=== PATIENT | female | born 1970 | race Caucasian/White ===

== ENCOUNTER → 2016-07-11 | Outpatient (CLI) | payer BC ==
[~2016-07-11] MED LIST: AMBIEN 10MG10 MG PO; AMBIEN 5MG TABLE5 MG PO; AMITRIPTYLINE H25 M1 PO; AMLOPIDINE; ANTIVERT 25MG25 MG PO; BENADRYL25 M2 PO; CALCIUM; CARAFATE 1GM1 G PO; CEPHALEXIN500 M1 PO; CLEOCIN HC150 MG/CAP PO; COMBIVENT INH14.7 GM IH; COUMADIN 5MG5 MG/TAB; FLEXERIL 1010 MG/TAB; FLONASE NASAL S16 GM NS; FLOVENT 44MCG I13 GM IH; HCTZ; IPRATROPIUM BROM3 M1 IH; IRON325 M1; K-DUR 10 MEQ T10 MEQ PO; K-DUR20 MEQ PO; KADIAN100 MG PO; LASIX 20MG TABL20 MG PO; LASIX 40MG TABL40 MG PO; LIORESAL 1010 MG/TAB PO; LIPITOR 40MG TA40 MG PO; LISINOPRIL10 MG PO; MIRAPEX 1MG PO; MIRAPEX0.75 MG PO; MOVANTIK25 MG PO; MS CONTIN 660 MG/TAB PO; MS CONTIN100 MG PO; MULTIVITAMIN1 CTB PO; NEURONTIN300 MG/CAP PO; NEURONTIN600 MG/TAB PO; NEXIUM 40MG40 MG PO; NEXIUM PO; NORCO 325 MG-51 TAB PO; NORVASC 5MG5 MG/TAB PO; PEPCID40 MG PO; PERCOCET 325 MG1 TAB PO; PHENERGAN 25 TA25 MG PO; PRAVACHOL 40MG40 MG PO; PREDNISONE20 MG PO; PRENATAL PO; PRENATAL VITAMI1 TA3 PO; PRENATAL1 TA6; PREVACID SOLUTA30 M2 PO; PRIL40 PO; PRILOSEC 20MG20 MG PO; PRINIVIL10 MG PO; PRINIVIL20 MG PO; PRINZIDE 12.5 M1 TA1 PO; PROAIR HFA0.09 MG/AC IH; PROVENTIL0.09 MG/A1 IH; SENEXON8.6 MG PO; TRIAMCINOLONE A15 G1 TP; TYLENOL 325MG325 MG PO; TYLENOL 500MG500 MG PO; ULTRAM 50MG TAB50 MG; VALIUM5 MG PO; VITAMIN B COMPL1 T16 PO; VITAMIN B11000 MCG/M IM; VITAMIN B122500 MCG; VITAMIN D 50,1.25 MG; VITAMIN D1000 IU PO; VITAMIN D32000 IU PO; ZOFRAN 4MG T4 MG/TAB PO; ZOFRAN ODT4 MG PO; ZOLOFT 100MG100 MG PO; [UNRECOGNIZED DRUG - CODE] PO; [UNRECOGNIZED DRUG - OTHER]
== END ==
LOC: COL.RAD 10:38
DX: M25.511 Pain in right shoulder (principal); M25.561 Pain in right knee; R10.84 Generalized abdominal pain; K59.00 Constipation, unspecified; R11.2 Nausea with vomiting, unspecified

== ENCOUNTER → 2016-07-14 | Outpatient (CLI) | payer BC ==
[2016-07-18 17:04] LABS: HELICOBACTER PYLORI STOOL AG Negative (Negative)
== END ==
LOC: ZCOL.LAB 13:48
PROVIDERS: Family Medicine
DX: R10.9 Unspecified abdominal pain (principal); K59.00 Constipation, unspecified; R11.10 Vomiting, unspecified; R11.0 Nausea

== ENCOUNTER → 2016-07-18 | Outpatient (CLI) | payer BC ==
[~2016-07-18] VITALS: Ht 170.2 cm; Wt 147.7 kg
[2016-07-18 10:47] VITALS: BP 128/82; PULSE 84; TEMP 98.6
== END ==
LOC: EUO 10:00
DX: M81.8 Other osteoporosis without current pathological fracture (principal)
CPT/HCPCS: J3489

== ENCOUNTER 2016-07-26 07:52 | Emergency (ER) | payer BC ==
[~2016-07-26] VITALS: Ht 170.2 cm; Wt 147.7 kg
[~2016-07-26 07:52] MED LIST changes: -AMITRIPTYLINE H25 M1 PO; -CEPHALEXIN500 M1 PO; -CLEOCIN HC150 MG/CAP PO; -K-DUR 10 MEQ T10 MEQ PO; -K-DUR20 MEQ PO; -LASIX 20MG TABL20 MG PO; -LASIX 40MG TABL40 MG PO; -MS CONTIN100 MG PO; -MULTIVITAMIN1 CTB PO; -PHENERGAN 25 TA25 MG PO; -PRINIVIL10 MG PO; -PRINIVIL20 MG PO; -TRIAMCINOLONE A15 G1 TP; -ZOFRAN 4MG T4 MG/TAB PO; -ZOLOFT 100MG100 MG PO
[2016-07-26 07:56] VITALS: TEMP 98
[2016-07-26 10:33] VITALS: BP 110/82; PULSE 102
== END 2016-07-26 10:35 | disposition home or self-care (01) ==
LOC: COL.ER 07:52
DX: S70.01XA Contusion of right hip, initial encounter (principal); S80.01XA Contusion of right knee, initial encounter; W18.30XA Fall on same level, unspecified, initial encounter; Y92.009 Unspecified place in unspecified non-institutional (private) residence as the place of occurrence of the external cause
CPT/HCPCS: J1885

== ENCOUNTER 2016-07-31 13:53 | Emergency (ER) | payer BC ==
[~2016-07-31] VITALS: Ht 170.2 cm; Wt 150.0 kg
[2016-07-31 13:57] VITALS: TEMP 97.8
[2016-07-31 15:32] LABS: BASO # 0.1 (0.0-0.2); BASO % 0.7 % (0.0-2.0); EOS # 0.2 (0.0-0.7); EOS % 2.1 % (0-4.0); GRAN # 6.2 (1.4-6.5); GRAN % 71.8 % (42.2-75.2); HEMATOCRIT 37.2 % (37.0-47.0); HEMOGLOBIN 12.4 g/dl (12.5-16.0); LYMPH # 1.6 (1.2-3.4); MEAN CELL VOLUME 86 fl (80.0-100.0); MEAN CORPUSCULAR HEMOGLOBIN 29 pg (27.0-31.0); MEAN CORPUSCULAR HGB CONC 33 g/dl (33.0-37.0); MEAN PLATELET VOLUME 8.1 fl (7.4-10.4); MONO # 0.6 (0.1-0.6); MONO % 7.2 % (1.7-9.3); PLATELET COUNT 248 K/mm3 (130-400); RED BLOOD COUNT 4.35 M/mm3 (4.10-5.30); REDCELL DISTRIBUTION WIDTH-CV 13.6 % (11.5-14.5); WHITE BLOOD COUNT 8.6 K/mm3 (4.8-10.8)
[2016-07-31 15:51] LABS: ADJUSTED CALCIUM 8.9 mg/dL (8.4-10.2); ALBUMIN 3.8 gm/dL (3.5-5.0); BILIRUBIN,TOTAL 0.8 mg/dL (0.0-1.0); C-REACTIVE PROTEIN 1.8 mg/dL (0.0-0.9); CALCIUM 8.7 mg/dL (8.4-10.2); CREATININE, serum 0.73 mg/dL (0.52-1.25); TOTAL PROTEIN 7.2 gm/dL (6.4-8.2)
[2016-07-31] MEDS ORDERED: CEPHALEXIN500 M1 PO (18:32)
[2016-07-31] MEDS ORDERED: LASIX 20MG TABL20 MG PO (18:32)
[2016-07-31] MEDS ORDERED: K-DUR 10 MEQ T10 MEQ PO (18:32)
[2016-07-31 18:49] VITALS: BP 141/92; PULSE 108
== END 2016-07-31 19:20 | disposition home or self-care (01) ==
LOC: COL.ER 13:53
PROVIDERS: Emergency Medicine
DX: S82.831A Other fracture of upper and lower end of right fibula, initial encounter for closed fracture (principal); L03.115 Cellulitis of right lower limb; W19.XXXA Unspecified fall, initial encounter; R60.0 Localized edema
CPT/HCPCS: J1170

== ENCOUNTER 2016-12-25 12:09 | Inpatient (IN) | payer BC, OTHER ==
[~2016-12-25] VITALS: Ht 170.2 cm; Wt 147.5 kg
[~2016-12-25 12:09] MED LIST changes: +CEPHALEXIN500 M1 PO; +K-DUR 10 MEQ T10 MEQ PO; +LASIX 20MG TABL20 MG PO
[2016-12-25] MEDS ORDERED: MS CONTIN100 MG PO (12:45)
[2016-12-25] MEDS ORDERED: LASIX 40MG TABL40 MG PO (12:51)
[2016-12-25] MEDS ORDERED: K-DUR20 MEQ PO (12:52)
[2016-12-25] MEDS ORDERED: ZOLOFT 100MG100 MG PO (13:03)
[2016-12-25] MEDS ORDERED: AMITRIPTYLINE H25 M1 PO (13:04)
[2016-12-25] MEDS ORDERED: ZOFRAN 4MG T4 MG/TAB PO (13:04)
[2016-12-25] MEDS ORDERED: IPRATROPIUM BROM3 M1 IH (13:05)
[2016-12-25 13:29] LABS: MEAN CELL VOLUME 83 fl (80.0-100.0); MEAN CORPUSCULAR HGB CONC 35 g/dl (33.0-37.0); MEAN PLATELET VOLUME 8.9 fl (7.4-10.4); PLATELET COUNT 112 K/mm3 (130-400); RED BLOOD COUNT 3.74 M/mm3 (4.10-5.30); REDCELL DISTRIBUTION WIDTH-CV 18.4 % (11.5-14.5); WHITE BLOOD COUNT 3.2 K/mm3 (4.8-10.8)
[2016-12-25 13:30] LABS: HEMATOCRIT 31.1 % (37.0-47.0); HEMOGLOBIN 10.8 g/dl (12.5-16.0); MEAN CORPUSCULAR HEMOGLOBIN 29 pg (27.0-31.0)
[2016-12-25 13:39] LABS: ADJUSTED CALCIUM 8.8 mg/dL (8.4-10.2); ALBUMIN 3.7 gm/dL (3.5-5.0); BILIRUBIN,TOTAL 0.7 mg/dL (0.0-1.0); CALCIUM 8.6 mg/dL (8.4-10.2); CREATININE, serum 1.51 mg/dL (0.52-1.25); POTASSIUM 3.6 mmol/L (3.4-5.0); TOTAL PROTEIN 6.7 gm/dL (6.4-8.2)
[2016-12-25 13:52] LABS: ADD PATHOLOGY DIFF REVIEW YES; BAND 16 % (0-10); BASOPHIL 1 % (0-2); EOSINOPHIL 12 % (0-4); METAMYELOCYTE 2 % (0-0); NEUTROPHILS 57 % (42.0-75.2); PLATELET ESTIMATE DECREASED (NORMAL); TOTAL CELLS COUNTED 100
[2016-12-25 14:53] LABS: PH 5 (5-8); SQUAMOUS EPITHELIAL 0-2 /hpf; URINE APPEARANCE Clear; URINE BACTERIA Occasional /hpf; URINE BILIRUBIN Negative (NEGATIVE); URINE BLOOD Negative (NEGATIVE); URINE COLOR Yellow; URINE GLUCOSE Negative (NEGATIVE); URINE KETONE Negative (NEGATIVE); URINE RBC 0-2 /hpf; URINE UROBILINOGEN Negative (NEGATIVE); URINE WBC 0-2 /hpf
[2016-12-25] MEDS ORDERED: MULTIVITAMIN1 CTB PO (14:53)
[2016-12-25 19:49] VITALS: BP 108/70; PULSE 77; TEMP 97.7
[2016-12-25 20:31] LABS: ANION GAP 10 mmol/L (7-16); BLOOD UREA NITROGEN 22 mg/dL (7-17); CALCIUM 8.5 mg/dL (8.4-10.2); CARBON DIOXIDE 30 mmol/L (22-30); CREATININE, serum 1.21 mg/dL (0.52-1.25); GLUCOSE 101 mg/dL (74-106); POTASSIUM 3.5 mmol/L (3.4-5.0); SODIUM 129 mmol/L (137-145)
[2016-12-25 20:34] LABS: CHLORIDE 89 mmol/L (98-107)
[2016-12-25 22:51] LABS: B-TYPE NATRIURETIC PEPTIDE 378 pg/mL (0-125)
[2016-12-25 22:52] LABS: TROPONIN-I < 0.012 ng/mL (0.000-0.034)
[2016-12-26] VITALS (7 sets, daily range): BP systolic 85–134; BP diastolic 45–81; PULSE 75–110; TEMP 97.6–98.7
[2016-12-26 07:17] LABS: MEAN CELL VOLUME 84 fl (80.0-100.0); MEAN CORPUSCULAR HGB CONC 35 g/dl (33.0-37.0); MEAN PLATELET VOLUME 8.7 fl (7.4-10.4); PLATELET COUNT 114 K/mm3 (130-400); RED BLOOD COUNT 3.58 M/mm3 (4.10-5.30); REDCELL DISTRIBUTION WIDTH-CV 18.4 % (11.5-14.5); WHITE BLOOD COUNT 2.4 K/mm3 (4.8-10.8)
[2016-12-26 07:18] LABS: HEMATOCRIT 29.9 % (37.0-47.0); HEMOGLOBIN 10.4 g/dl (12.5-16.0); MEAN CORPUSCULAR HEMOGLOBIN 29 pg (27.0-31.0)
[2016-12-26 07:19] LABS: ADD PATHOLOGY DIFF REVIEW NO
[2016-12-26 07:38] LABS: CALCIUM 8.1 mg/dL (8.4-10.2); CREATININE, serum 0.88 mg/dL (0.52-1.25); POTASSIUM 3.6 mmol/L (3.4-5.0)
[2016-12-26 08:15] LABS: BAND 32 % (0-10); EOSINOPHIL 12 % (0-4); MYELOCYTE 2 % (0-0); NEUTROPHILS 48 % (42.0-75.2); TOTAL CELLS COUNTED 100
[2016-12-26 08:20] LABS: PLATELET ESTIMATE DECREASED (NORMAL)
[2016-12-26 08:21] LABS: ANISOCYTOSIS 1+
[2016-12-26 09:29] LABS: PATHOLOGY DIFF REVIEW OK
[2016-12-27] VITALS (7 sets, daily range): BP systolic 106–137; BP diastolic 39–79; PULSE 61–79; TEMP 97.1–98.2
[2016-12-27 06:44] LABS: BASO % 0.8 % (0.0-2.0); EOS # 0.2 (0.0-0.7); EOS % 9.7 % (0-4.0); GRAN # 1.6 (1.4-6.5); GRAN % 66.4 % (42.2-75.2); HEMOGLOBIN 10.4 g/dl (12.5-16.0); LYMPH # 0.1 (1.2-3.4); LYMPH % 5.7 % (20.0-51.0); MEAN CELL VOLUME 86 fl (80.0-100.0); MEAN CORPUSCULAR HEMOGLOBIN 29 pg (27.0-31.0); MEAN CORPUSCULAR HGB CONC 34 g/dl (33.0-37.0); MEAN PLATELET VOLUME 8.6 fl (7.4-10.4); MONO # 0.4 (0.1-0.6); PLATELET COUNT 112 K/mm3 (130-400); RED BLOOD COUNT 3.62 M/mm3 (4.10-5.30); REDCELL DISTRIBUTION WIDTH-CV 18.5 % (11.5-14.5); WHITE BLOOD COUNT 2.5 K/mm3 (4.8-10.8)
[2016-12-27 06:55] LABS: CALCIUM 8.1 mg/dL (8.4-10.2); CREATININE, serum 0.71 mg/dL (0.52-1.25); POTASSIUM 3.7 mmol/L (3.4-5.0)
[2016-12-28 04:13] VITALS: BP 117/79; PULSE 69; TEMP 97.8
[2016-12-28 07:16] LABS: CALCIUM 8.2 mg/dL (8.4-10.2); CREATININE, serum 0.76 mg/dL (0.52-1.25); POTASSIUM 3.5 mmol/L (3.4-5.0)
[2016-12-28 08:52] VITALS: BP 131/82; PULSE 72; TEMP 98.6
[2016-12-28 12:05] VITALS: BP 126/78; PULSE 66; TEMP 97.6
[2016-12-28] MEDS ORDERED: CLEOCIN HC150 MG/CAP PO (13:34)
[2016-12-28] MEDS ORDERED: PRINIVIL20 MG PO (13:35)
[2016-12-28] MEDS ORDERED: TRIAMCINOLONE A15 G1 TP (13:36)
[2016-12-28 16:08] VITALS: BP 127/79; PULSE 82; TEMP 98.2
[2016-12-28 19:17] VITALS: BP 122/72; PULSE 68; TEMP 98.1
[2016-12-28 22:54] VITALS: BP 115/72; PULSE 77; TEMP 98.5
[2016-12-29 03:59] VITALS: BP 139/89; PULSE 76; TEMP 98.5
[2016-12-29 07:31] VITALS: BP 143/82; PULSE 90; TEMP 98.1
[2016-12-29 07:55] LABS: CALCIUM 8.7 mg/dL (8.4-10.2); CREATININE, serum 0.71 mg/dL (0.52-1.25); POTASSIUM 3.8 mmol/L (3.4-5.0)
== END 2016-12-29 13:20 | disposition home or self-care (01) | DRG 683 ==
LOC: COL.ER 12:09 → SURG 17:43 → MEDICAL 17:43
PROVIDERS: Family Medicine; Internal Medicine; Physician Assistant; Physician Assistant Medical
DX: N17.9 Acute kidney failure, unspecified (principal); E87.1 Hypo-osmolality and hyponatremia; C16.9 Malignant neoplasm of stomach, unspecified; I10 Essential (primary) hypertension; M79.7 Fibromyalgia; D64.9 Anemia, unspecified; G89.29 Other chronic pain; D69.6 Thrombocytopenia, unspecified
CPT/HCPCS: 99223-AI; 99232-AI; 99239; J1644; J1652; J1885; J2270; J2405; J2765; J7030; J7040

== ENCOUNTER → 2017-01-24 | Outpatient (CLI) | payer BC ==
[~2017-01-24] MED LIST changes: +AMITRIPTYLINE H25 M1 PO; +CLEOCIN HC150 MG/CAP PO; +K-DUR20 MEQ PO; +LASIX 40MG TABL40 MG PO; +MS CONTIN100 MG PO; +MULTIVITAMIN1 CTB PO; +PHENERGAN 25 TA25 MG PO; +PRINIVIL10 MG PO; +PRINIVIL20 MG PO; +TRIAMCINOLONE A15 G1 TP; +ZOFRAN 4MG T4 MG/TAB PO; +ZOLOFT 100MG100 MG PO
== END ==
LOC: COL.RAD 09:15
DX: M17.12 Unilateral primary osteoarthritis, left knee (principal); W19.XXXA Unspecified fall, initial encounter

== ENCOUNTER 2017-02-05 10:57 | Emergency (ER) | payer BC ==
[~2017-02-05] VITALS: Ht 170.2 cm; Wt 140.9 kg
[~2017-02-05 10:57] MED LIST changes: -PHENERGAN 25 TA25 MG PO; -PRINIVIL10 MG PO
[2017-02-05 10:59] VITALS: TEMP 98.5
[2017-02-05] MEDS ORDERED: PRINIVIL10 MG PO (11:18)
[2017-02-05 11:55] LABS: BASO % 0.5 % (0.0-2.0); EOS % 0.4 % (0-4.0); GRAN # 4.5 (1.4-6.5); GRAN % 78.8 % (42.2-75.2); HEMOGLOBIN 12.6 g/dl (12.5-16.0); LYMPH # 0.7 (1.2-3.4); LYMPH % 11.9 % (20.0-51.0); MEAN CELL VOLUME 88 fl (80.0-100.0); MEAN CORPUSCULAR HEMOGLOBIN 30 pg (27.0-31.0); MEAN CORPUSCULAR HGB CONC 34 g/dl (33.0-37.0); MEAN PLATELET VOLUME 8.7 fl (7.4-10.4); MONO # 0.5 (0.1-0.6); MONO % 8.2 % (1.7-9.3); PLATELET COUNT 170 K/mm3 (130-400); REDCELL DISTRIBUTION WIDTH-CV 14.6 % (11.5-14.5); WHITE BLOOD COUNT 5.6 K/mm3 (4.8-10.8)
[2017-02-05 12:08] LABS: ALBUMIN 3.7 gm/dL (3.5-5.0); BILIRUBIN,TOTAL 0.5 mg/dL (0.0-1.0); C-REACTIVE PROTEIN 0.6 mg/dL (0.0-0.9); CALCIUM 8.8 mg/dL (8.4-10.2); CREATININE, serum 0.69 mg/dL (0.52-1.25); TOTAL PROTEIN 6.9 gm/dL (6.4-8.2)
[2017-02-05] MEDS ORDERED: PHENERGAN 25 TA25 MG PO (12:23)
[2017-02-05 13:44] VITALS: BP 122/82; PULSE 74
== END 2017-02-05 13:45 | disposition home or self-care (01) ==
LOC: COL.ER 10:57
PROVIDERS: Emergency Medicine
DX: C16.9 Malignant neoplasm of stomach, unspecified (principal); E87.1 Hypo-osmolality and hyponatremia; R11.2 Nausea with vomiting, unspecified; I10 Essential (primary) hypertension; E78.5 Hyperlipidemia, unspecified; M79.7 Fibromyalgia; Z90.49 Acquired absence of other specified parts of digestive tract; Z90.710 Acquired absence of both cervix and uterus; Z98.84 Bariatric surgery status
CPT/HCPCS: J1170; J2405; J2550; J7030

== ENCOUNTER 2017-06-07 17:06 | Emergency (ER) | payer BC, MEDICARE ==
[~2017-06-07] VITALS: Ht 170.2 cm; Wt 124.1 kg
[~2017-06-07 17:06] MED LIST changes: +PHENERGAN 25 TA25 MG PO; +PRINIVIL10 MG PO
[2017-06-07 17:14] VITALS: TEMP 98.5
[2017-06-07 18:21] LABS: BASO % 0.6 % (0.0-2.0); EOS # 0.4 (0.0-0.7); EOS % 5.7 % (0-4.0); GRAN # 4.3 (1.4-6.5); GRAN % 69.2 % (42.2-75.2); HEMATOCRIT 41.6 % (37.0-47.0); HEMOGLOBIN 12.6 g/dl (12.5-16.0); LYMPH # 0.8 (1.2-3.4); LYMPH % 13.2 % (20.0-51.0); MEAN CELL VOLUME 74 fl (80.0-100.0); MEAN CORPUSCULAR HEMOGLOBIN 22 pg (27.0-31.0); MEAN CORPUSCULAR HGB CONC 30 g/dl (33.0-37.0); MEAN PLATELET VOLUME 9.3 fl (7.4-10.4); MONO # 0.7 (0.1-0.6); MONO % 10.7 % (1.7-9.3); PLATELET COUNT 263 K/mm3 (130-400); RED BLOOD COUNT 5.65 M/mm3 (4.10-5.30); WHITE BLOOD COUNT 6.2 K/mm3 (4.8-10.8)
[2017-06-07 18:30] LABS: ADJUSTED CALCIUM 9.6 mg/dL (8.4-10.2); BILIRUBIN,TOTAL 0.6 mg/dL (0.0-1.0); CALCIUM 9.6 mg/dL (8.4-10.2); CREATININE, serum 0.75 mg/dL (0.52-1.25); TOTAL PROTEIN 8.1 gm/dL (6.4-8.2)
[2017-06-07 18:32] LABS: POTASSIUM 2.9 mmol/L (3.4-5.0)
[2017-06-07] MEDS ORDERED: DAZIDOX20 MG PO (19:18)
[2017-06-07] MEDS ORDERED: PROTONIX 40MG T40 MG PO (19:19)
[2017-06-07] MEDS ORDERED: COMPAZINE 110 MG/TAB PO (19:25)
[2017-06-07] MEDS ORDERED: ATIVAN 1MG T1 MG/TAB PO (19:26)
[2017-06-07] MEDS ORDERED: ATIVAN2 MG PO (19:26)
[2017-06-07] MEDS ORDERED: TUMS500 MG (19:26)
[2017-06-07] MEDS ORDERED: ROXANOL 20MG20 MG/ML (19:27)
[2017-06-07] MEDS ORDERED: FENTANYL 100MCG TD (19:27)
[2017-06-07] MEDS ORDERED: PHENERGAN25 MG RC (22:08)
[2017-06-07 22:23] VITALS: BP 154/106; PULSE 98
== END 2017-06-07 22:40 | disposition home or self-care (01) ==
LOC: COL.ER 17:06
PROVIDERS: Family Medicine
DX: C16.9 Malignant neoplasm of stomach, unspecified (principal)
CPT/HCPCS: J1170; J2405; J2550; J7030; J7050; Q9967